=== PATIENT | male | born 2000 | race African-American/Black ===

== ENCOUNTER 2023-05-11 01:40 | Emergency (ER) | payer OTHER ==
[~2023-05-11] VITALS: Ht 182.9 cm; Wt 68.0 kg
[2023-05-11 01:55] VITALS: BP 140/90; PULSE 94; RESP 17; TEMP 97.7; O2SAT 100
--- NOTE | 2023-05-11 01:58 | NUR ---
to lobby a/w bed ambulatory
--- NOTE | 2023-05-11 03:50 | NUR ---
PT TAKEN TO BED 8
--- NOTE | 2023-05-11 03:54 | NUR ---
Dr. De Paz examining patient.
[2023-05-11] MEDS ORDERED: ALBU0.0912 IH (04:06)
[2023-05-11 04:14] VITALS: BP 140/90; PULSE 94; RESP 17; TEMP 97.7; O2SAT 100
--- NOTE | 2023-05-11 04:14 | NUR ---
Note jason in EDM - 05/11/23 at 0417 by MED Patient discharged with v/s stable. Written and verbal after care instructions given and explained. Patient alert, oriented and verbalized understanding of instructions. Ambulatory with steady gait. All questions addressed prior to discharge. ID band removed. Patient advised to follow up with PMD. Rx of albuterol given. Patient educated on indication of medication including possible reaction and side effects. Opportunity to ask questions provided and answered.
== END 2023-05-11 04:14 | disposition home or self-care (01) ==
LOC: MED 01:40
DX: R06.02 Shortness of breath (principal); R05.9 Cough, unspecified
CPT/HCPCS: 71045; 99283